=== PATIENT | female | born 1995 | race Native Hawaiian/Other Pacific Islander ===

== ENCOUNTER 2019-10-07 11:15 | Emergency (ER) | payer OTHER ==
[~2019-10-07] VITALS: Ht 165.1 cm; Wt 73.9 kg
[2019-10-07 11:27] VITALS: TEMP 97.9
[2019-10-07 13:21] VITALS: BP 110/64
== END 2019-10-07 13:23 | disposition home or self-care (01) ==
LOC: ED 11:15
DX: J45.909 Unspecified asthma, uncomplicated (principal); Z3A.01 Less than 8 weeks gestation of pregnancy; F17.290 Nicotine dependence, other tobacco product, uncomplicated
CPT/HCPCS: 87502; 94664; 96372; 99283; J2930